=== PATIENT | female | born 1990 | race Caucasian/White ===

== ENCOUNTER → 2018-07-24 20:05 | Emergency (ER) | payer SELFPAY ==
--- NOTE | 2018-07-24 21:50 | ED ---
Substance Abuse/Use - HPI Summary HPI Summary: This patient is a 28 year old F brought in by ambulance to [facility] with a chief complaint of overdose since 19:00. The patient reports that she snorted heroin at a gas station and then cannot remember what happened after walking to a nearby car wash. Per EMS the patient was found unresponsive in a parking lot. EMS administered narcan PLAST[employer] FABRICATOR to [facility] and the patient became fully responsive. The patient rates the pain 0/10 in severity. Symptoms aggravated by nothing. Symptoms alleviated by nothing. Patient reports abrasion to her chin. The patient takes Sertraline. - History Of Current Complaint Chief Complaint: EDOverdose Stated Complaint: OVERDOSE PER EMS Time Seen by Provider: 07/24/18 20:44 Hx Obtained From: Patient Hx Last Menstrual Period: 06/25/14 Onset/Duration of Drug/ETOH Abuse: Minutes Ingestion History: Type/Name Of Drug - herion Overdose Characteristics: Oral Severity Initially: Severe Severity Currently: Mild Aggravating Factor(s): Nothing Alleviating Factor(s): Nothing Associated Signs And Symptoms: Other: - abrasion on chin - Allergies/Home Medications Allergies/Adverse Reactions: Allergies Allergy/AdvReac Type Severity Reaction Status Date / Time cefaclor [From [facility]] Allergy Airway Verified 07/24/18 20:06 Obstruction PMH/Surg Hx/FS Hx/Imm Hx Endocrine/Hematology History: Denies: Hx Diabetes, Hx Thyroid Disease Cardiovascular History: Denies: Hx Hypertension Respiratory History: Reports: Hx Asthma Denies: Hx Chronic Obstructive Pulmonary Disease (COPD) GI History: Denies: Hx Ulcer Opthamlomology History: Denies: Hx Legally Blind EENT History: Denies: Hx Deafness - Surgical History Surgery Procedure, Year, and Place: none Infectious Disease History: No Infectious Disease History: Denies: Hx Clostridium Difficile, Hx Hepatitis, Hx Human Immunodeficiency Virus (HIV), History Other Infectious Disease, Traveled Outside the [place] in Last 30 Days - Family History Known Family History: Negative: Seizure Disorder, Blood Disorder - Social History Alcohol Use: Rare Substance Use Type: Reports: Heroin Substance Use Comment - Amount & Last Used: opiates Smoking Status (MU): Never Smoked Tobacco Review of Systems Negative: Fever Negative: Epistaxis Negative: Cough Negative: Vomiting Skin: Other - abrasion on chin All Other Systems Reviewed And Are Negative: Yes Physical Exam - Summary Physical Exam Summary: VITAL SIGNS: Reviewed. GENERAL: Patient is a well-developed and nourished FEMALE who is lying comfortable in the stretcher. Patient is not in any acute respiratory distress. HEAD AND FACE: No signs of trauma. No ecchymosis, hematomas or skull depressions. No sinus tenderness. EYES: PERRLA, EOMI x 2, No injected conjunctiva, no nystagmus. EARS: Hearing grossly intact. Ear canals and tympanic membranes are within normal limits. MOUTH: Oropharynx within normal limits. NECK: Supple, trachea is midline, no adenopathy, no JVD, no carotid bruit, no c- spine tenderness, neck with full ROM. CHEST: Symmetric, no tenderness at palpation LUNGS: Clear to auscultation bilaterally. No wheezing or crackles. CVS: Regular rate and rhythm, S1 and S2 present, no murmurs or gallops appreciated. ABDOMEN: Soft, non-tender. No signs of distention. No rebound no guarding, and no masses palpated. Bowel sounds are normal. EXTREMITIES: FROM in all major joints, no edema, no cyanosis or clubbing. NEURO: Alert and oriented x 3. No acute neurological deficits. Speech is normal and follows commands. SKIN: Dry and warm. Superficial road rash on chin Triage Information Reviewed: Yes Vital Signs On Initial Exam: Initial Vitals Temp Pulse Resp BP Pulse Ox 98 F 94 16 126/80 99 07/24/18 20:07 07/24/18 20:07 07/24/18 20:07 07/24/18 20:07 07/24/18 20:07 Vital Signs Reviewed: Yes Diagnostics - Vital Signs Vital Signs Temp Pulse Resp BP Pulse Ox 07/24/18 20:27 86 18 125/73 100 07/24/18 20:26 85 15 99 07/24/18 20:07 98 F 94 16 126/80 99 - Laboratory Lab Statement: Any lab studies that have been ordered have been reviewed, and results considered in the medical decision making process. Course/Dx - Course Course Of Treatment: This patient is a 28 year old F brought in by ambulance to [facility] with a chief complaint of overdose since 19:00. The patient reports that she snorted heroin at a gas. Per EMS the patient was found unresponsive in a parking lot. EMS administered narcan PLAST[employer] FABRICATOR to [facility] and the patient became fully responsive. The patient rates the pain 0/10 in severity. Patient reports abrasion to her chin. Patient remained stable in the ED following EMS administration of narcan PLAST[employer] FABRICATOR. Dx substance abuse. Patient will be discharged home with and follow up from PCP. The patient is agreeable with this plan. - Diagnoses Provider Diagnoses: Substance abuse Discharge - Sign-Out/Discharge Documenting (check all that apply): Patient Departure - discharge home Patient Received Moderate/Deep Sedation with Procedure: No - Discharge Plan Condition: Stable Disposition: HOME Patient Education Materials: Opioid Withdrawal (ED), Opioid Use Disorder (ED) Referrals: Cristopher Zavaal MD [Primary Care Provider] - 1 Day Additional Instructions: Follow up with primary care physician in 1-2 days. Return to the emergency department with any new or worsening symptoms. - Attestation Statements Document Initiated by Scribe: Yes Documenting Scribe: Saskia Bagley Provider For Whom Scribe is Documenting (Include Credential): Madeline Juan MD Scribe Attestation: Saskia Rick, scribed for Madeline Juan MD on 07/24/18 at 2206. Status of Scribe Document: Ready
[2018-07-24 22:21] VITALS: BP 134/76
== END | disposition home or self-care (01) ==
LOC: ED 20:05
DX: F11.10 Opioid abuse, uncomplicated (principal); S00.81XA Abrasion of other part of head, initial encounter; X58.XXXA Exposure to other specified factors, initial encounter; Y92.9 Unspecified place or not applicable; J45.909 Unspecified asthma, uncomplicated
CPT/HCPCS: 99283

== ENCOUNTER 2020-12-14 14:10 | Inpatient (IN) ==
[2020-12-14] MEDS ORDERED: Albuterol HFA INHALER 8 gm MDI INH PRN (14:45)
[2020-12-14 14:54] LABS: Urine Appearance Clear; Urine Bilirubin Negative (Negative); Urine Blood 2+ (Negative); Urine Color Yellow; Urine Glucose Negative (Negative); Urine Ketones Negative (Negative); Urine Nitrite Negative (Negative); Urine Protein Negative (Negative); Urine Specific Gravity 1.005 (1.002-1.030); Urine Urobilinogen Negative (Negative)
[2020-12-14 15:01] LABS: Urine Bacteria 2+ (Absent); Urine Red Blood Cell Trace(0-2/hpf) (Absent); Urine Squamous Epithelial Cell Present (Absent); Urine White Blood Cell Trace(0-5/hpf) (Absent)
[2020-12-14 15:15] LABS: Hematocrit 35 % (35-47); Hemoglobin 11.7 g/dL (12.0-16.0); Mean Corpuscular HGB Conc 33 g/dL (31-36); Mean Corpuscular Hemoglobin 29 pg (27-31); Mean Corpuscular Volume 89 fL (80-97); Mean Platelet Volume 8.8 fL (7.4-10.4); Platelet Count 312 10^3/uL (150-450); Red Blood Count 3.98 10^6 /uL (3.70-4.87); Red Cell Distribution Width 14 % (10-15); White Blood Count 15.8 10^3/uL (3.5-10.8)
[2020-12-14 15:16] LABS: Urine Benzodiazepine Screen Presumptive Positive (None Detect); Urine Cannabinoids Screen Presumptive Positive (None Detect); Urine Opiates Screen None Detected (None Detect)
[2020-12-14 15:19] LABS: ABS Basophils 0.1 10^3/ul (0-0.2); ABS Eosinophils 0.1 10^3/ul (0-0.6); ABS Lymphocytes 1.6 10^3/ul (1.0-4.8); Eosinophil % 0.5 %; Lymphocyte % 10.3 %
[2020-12-14] MEDS ORDERED: Lactated Ringers 1000 ml BAG 1,000 ML IV ONE ×2 (15:49→19:11)
[2020-12-14] MEDS ORDERED: Penicillin G Potassium IV 5,000,000 UNITS in NS 0.9% 100 ml BAG 100 ML IVPB ONE (15:49)
[2020-12-14] MEDS: Calcium Carb (TUMS) 500 mg CHEW TAB PO PRN ×2 (16:17→21:24)
[2020-12-14] MEDS ORDERED: Betamethasone 6 mg/ml 5 ml VIAL IM SCH ×2 (17:00)
[2020-12-14 17:29] LABS: HIV 4th Generation Nonreactive (Nonreactive)
[2020-12-14] MEDS ORDERED: OBEPIDURAL 250 ML EPIDURAL ONE (18:26)
[2020-12-14] MEDS ORDERED: Phenylephrine 40 mcg/mL 10mL (400mcg) SYRINGE IV PUSH PRN ×2 (19:11)
[2020-12-14] MEDS ORDERED: Lactated Ringers 1000 ml BAG 500 ML IV PRN ×2 (19:11)
[2020-12-14] MEDS ORDERED: Sodium Citrate/Citric Acid LIQ 15 ML UDC PO PRN (19:11)
[2020-12-14 19:50] LABS: Urine Appearance Clear; Urine Bilirubin Negative (Negative); Urine Blood Negative (Negative); Urine Color Yellow; Urine Glucose Negative (Negative); Urine Ketones Trace (Negative); Urine Nitrite Negative (Negative); Urine Protein Negative (Negative); Urine Specific Gravity 1.011 (1.002-1.030); Urine Urobilinogen Negative (Negative)
[2020-12-14] MEDS ORDERED: Lactated Ringers 1000 ml BAG 1,000 ML IV SCH ×2 (20:00)
[2020-12-14] MEDS ORDERED: OBEPIDURAL 250 ML EPIDURAL SCH (20:00)
[2020-12-14 20:24] LABS: Albumin 2.9 g/dL (3.2-5.2); Calcium 9.1 mg/dL (8.6-10.3); EGFR African American 121.3 (>60); EGFR Non-African American 100.3 (>60); Globulin 2.9 g/dL (2-4); Potassium 3.7 mmol/L (3.5-5.0); Total Bilirubin 0.5 mg/dL (0.2-1.0); Total Protein 5.8 g/dL (6.4-8.9); Uric Acid 2.8 mg/dL (2.3-6.6)
[2020-12-14] MEDS: Penicillin G Potassium IV 3,000,000 UNITS in NS 0.9% 100 ml BAG 100 ML IVPB SCH (20:43)
[2020-12-14] MEDS ORDERED: Oxytocin in LR 20 UNITS/1,000 ML BAG IVPB ONE (23:56)
[2020-12-15] MEDS: Penicillin G Potassium IV 3,000,000 UNITS in NS 0.9% 100 ml BAG 100 ML IVPB SCH (00:34)
[2020-12-15] MEDS ORDERED: Witch Hazel PAD JAR TOPICAL PRN (01:45)
[2020-12-15] MEDS ORDERED: Dibucaine 1% OINT 28.35 GM TUBE PR PRN (01:45)
[2020-12-15] MEDS ORDERED: Lactated Ringers 1000 ml BAG 1,000 ML IV SCH (02:00)
[2020-12-15] MEDS ORDERED: Oxytocin in LR 20 UNITS/1,000 ML BAG IVPB SCH (02:00)
[2020-12-15] MEDS: Calcium Carb (TUMS) 500 mg CHEW TAB PO PRN ×3 (03:21→16:34)
[2020-12-15] MEDS ORDERED: Clindamycin 900 MG/D5W BAG 900 MG/50 ML BAG IVPB ONE (06:03)
[2020-12-15] MEDS ORDERED: GENTAMICIN ADULT IVPB ONE (06:30)
[2020-12-15] MEDS ORDERED: NS 0.9% IVPB ONE (06:30)
[2020-12-15] MEDS ORDERED: Flu vaccine *QUAD* 2021-22* 0.5 ML SYRINGE IM ONE (09:00)
[2020-12-15 09:34] LABS: Hematocrit 26 % (35-47); Hemoglobin 8.9 g/dL (12.0-16.0); Mean Corpuscular HGB Conc 34 g/dL (31-36); Mean Corpuscular Hemoglobin 30 pg (27-31); Mean Corpuscular Volume 89 fL (80-97); Platelet Count 298 10^3/uL (150-450); Red Blood Count 2.97 10^6 /uL (3.70-4.87); Red Cell Distribution Width 14 % (10-15); White Blood Count 32.2 10^3/uL (3.5-10.8)
[2020-12-15 10:03] LABS: ABS Basophils 0.2 10^3/ul (0-0.2); ABS Lymphocytes 2.6 10^3/ul (1.0-4.8); ABS Monocytes 1.8 10^3/ul (0-0.8); ABS Neutrophils 27.5 10^3/ul (1.5-7.7); Eosinophil % 0.1 %; Lymphocyte % 8.2 %
[2020-12-15 13:43] LABS: Chlamydia trachomatis NAA Negative (Negative); Neisseria gonorrhoeae (GC) NAA Negative (Negative)
[2020-12-16 06:11] LABS: ABS Basophils 0.1 10^3/ul (0-0.2); ABS Eosinophils 0.1 10^3/ul (0-0.6); ABS Lymphocytes 1.7 10^3/ul (1.0-4.8); ABS Monocytes 0.8 10^3/ul (0-0.8); ABS Neutrophils 14.8 10^3/ul (1.5-7.7); Eosinophil % 0.4 %; Hematocrit 26 % (35-47); Hemoglobin 8.9 g/dL (12.0-16.0); Lymphocyte % 9.7 %; Mean Corpuscular HGB Conc 34 g/dL (31-36); Mean Corpuscular Hemoglobin 30 pg (27-31); Mean Corpuscular Volume 89 fL (80-97); Mean Platelet Volume 8.6 fL (7.4-10.4); Platelet Count 347 10^3/uL (150-450); Red Blood Count 2.92 10^6 /uL (3.70-4.87); Red Cell Distribution Width 14 % (10-15); White Blood Count 17.5 10^3/uL (3.5-10.8)
[2020-12-16 11:11] LABS: Hepatitis B Surface Antigen Nonreactive (Nonreactive)
[2020-12-16 11:28] LABS: Hepatitis C Antibody Negative (Negative)
[2020-12-16] MEDS: Calcium Carb (TUMS) 500 mg CHEW TAB PO PRN (18:34)
[2020-12-17] MEDS ORDERED: Flu vaccine *QUAD* 2021-22* 0.5 ML SYRINGE IM ONE (09:00)
[2020-12-18 07:48] VITALS: BP 128/68
[2020-12-20 22:42] LABS: 7-amnioflunitrazepam LC-MS/MS Negative ng/mL (Cutoff: 10); Alpha OH Triazolam by LC-MS/MS Negative ng/mL (Cutoff: 10); Alpha-Hydroxyalprazolam LC-MS Negative ng/mL (Cutoff: 10); Alpha-OH Midazolam LC-MS/MS Negative ng/mL (Cutoff: 10); Alprazolam LC-MS/MS Negative ng/mL (Cutoff: 10); Chlordiazepoxide by LC-MS/MS Negative ng/mL (Cutoff: 10); Clobazam LC-MS/MS Negative ng/mL (Cutoff: 10); Lorazepam by LC-MS/MS Negative ng/mL (Cutoff: 10); Oxazepam by LC-MS/MS Negative ng/mL (Cutoff: 10); Prazepam by LC-MS/MS Negative ng/mL (Cutoff: 10); Temazepam by LC-MS/MS Negative ng/mL (Cutoff: 10); Triazolam by LC-MS/MS Negative ng/mL (Cutoff: 10); Zolpidem Phenyl-4-Carboxylic Negative ng/mL (Cutoff: 10); Zolpidem by LC-MS/MS Negative ng/mL (Cutoff: 10)
== END 2020-12-18 18:20 | disposition home or self-care (01) | DRG 560 ==
LOC: MCHOBOUT 14:10 → MCHOB 16:10
PROVIDERS: ADMIT Midwife; ATTEND Midwife

== ENCOUNTER 2022-10-19 18:10 | Inpatient (IN) ==
[2022-10-19] MEDS ORDERED: Lactated Ringers 1000 ml BAG 1,000 ML IV ONE ×2 (18:34→19:19)
[2022-10-19] MEDS ORDERED: Buffered Lidocaine 1% SYRIN 1 ml INTRADERM ONE (18:34)
[2022-10-19 18:39] LABS: Hematocrit 39.4 % (35-45); Hemoglobin 13.2 g/dL (11.5-14.3); Mean Corpuscular Hemoglobin 28.3 pg (27-33); Mean Corpuscular Hgb Conc 33.4 g/dL (31-36); Mean Corpuscular Volume 84.6 fL (80-97); Mean Platelet Volume 9.7 fL (7.5-11.2); Platelet Count 238 10^3/uL (150-450); Red Blood Count 4.65 10^6/uL (3.63-4.92); Red Cell Distribution Width 13.8 % (12-17); White Blood Count 13.8 10^3/uL (3.8-11.8)
[2022-10-19] MEDS ORDERED: Bupivacaine 0.25% SDV PF 10 ML VIAL INJ ONE (18:47)
[2022-10-19] MEDS ORDERED: OBEPIDURAL (200 ML) 200 ML EPIDURAL ONE (18:47)
[2022-10-19] MEDS ORDERED: fentaNYL 100 mcg/2 ml 50 MCG/ML VIAL ONE (18:47)
[2022-10-19] MEDS ORDERED: Phenylephrine 40 mcg/mL 10mL (400mcg) SYRINGE ONE (18:58)
[2022-10-19] MEDS ORDERED: Lactated Ringers 1000 ml BAG 1,000 ML IV SCH ×3 (19:00→22:00)
[2022-10-19] MEDS ORDERED: Lidocaine 1% w EPI 1:200,000 SDV 10 ML VIAL ONE (19:02)
[2022-10-19 19:12] LABS: Albumin 3.6 g/dL (3.2-5.2); CO2 Carbon Dioxide 24 mmol/L (22-32); Calcium 9.6 mg/dL (8.6-10.3); Chloride 104 mmol/L (101-111); Sodium 139 mmol/L (135-145)
[2022-10-19 19:18] LABS: ALT 45 U/L (7-52); Albumin/Globulin Ratio 1.2 (1-3); Alkaline Phosphatase 389 U/L (35-149); Blood Urea Nitrogen 14 mg/dL (6-24); Creatinine, Serum 0.82 mg/dL (0.51-0.95); Globulin 2.9 g/dL (2-4); Glucose 99 mg/dL (70-100); Total Protein 6.5 g/dL (6.4-8.9); eGFR CKD-EPI 96.2 (>60)
[2022-10-19] MEDS ORDERED: Sodium Citrate/Citric Acid LIQ 15 ML UDC PO PRN (19:19)
[2022-10-19] MEDS ORDERED: Phenylephrine 40 mcg/mL 10mL (400mcg) SYRINGE IV PUSH PRN ×2 (19:19)
[2022-10-19 19:32] LABS: RBC Morphology Normal (Normal)
[2022-10-19 19:33] LABS: Platelet Morphology Large
[2022-10-19 19:34] LABS: ABS Basophils 0.1 10^3/uL (0.0-0.1); ABS Lymphocytes 2.1 10^3/uL (1.0-4.8); ABS Monocytes 0.9 10^3/uL (0.0-0.9); ABS Neutrophils 10.6 10^3/uL (1.5-7.6); ABS Nucleated RBC 0.01 10^3/ul; Eosinophil % 0.3 %; Lymphocyte % 15.1 %
[2022-10-19 19:42] LABS: Rubella Screen IgG Immune (Immune)
[2022-10-19 19:44] LABS: Anion Gap 11 mmol/L (2-16)
[2022-10-19] MEDS ORDERED: Oxytocin in LR 20,000 MILLI.UNIT/1,000 ML BAG IV ONE (19:48)
[2022-10-19] MEDS ORDERED: OBEPIDURAL (200 ML) 200 ML EPIDURAL SCH (20:00)
[2022-10-19] MEDS ORDERED: Witch Hazel PAD JAR TOPICAL PRN (21:26)
[2022-10-19] MEDS ORDERED: Glycerin ADULT 2.4 gm SUPP PR PRN (21:26)
[2022-10-19] MEDS ORDERED: Tetan/Diph/Pertus SYR(Tdap) 0.5 ML SYR(BOOSTRIX) use SYR contains LATEX IM ONE (21:26)
[2022-10-19] MEDS ORDERED: Dibucaine 1% OINT 28.35 GM TUBE PR PRN (21:26)
[2022-10-19] MEDS ORDERED: Oxytocin in LR 20,000 MILLI.UNIT/1,000 ML BAG IV SCH (21:30)
[2022-10-19 21:50] LABS: Hepatitis B Surface Antigen Nonreactive (Nonreactive)
[2022-10-19 21:59] LABS: HIV 4th Generation Nonreactive (Nonreactive)
[2022-10-19 22:08] LABS: Hepatitis C Antibody Negative (Negative)
[2022-10-19] MEDS: Calcium Carb (TUMS) 500 mg CHEW TAB PO PRN (23:49)
[2022-10-20 00:44] LABS: Urine Benzodiazepine Screen None Detected (None Detect); Urine Cannabinoids Screen Presumptive Positive (None Detect); Urine Opiates Screen None Detected (None Detect)
[2022-10-20] MEDS: Calcium Carb (TUMS) 500 mg CHEW TAB PO PRN ×2 (05:35→11:41)
[2022-10-20 08:48] LABS: Hematocrit 31.2 % (35-45); Hemoglobin 10.5 g/dL (11.5-14.3); Mean Corpuscular Hemoglobin 28.9 pg (27-33); Mean Corpuscular Hgb Conc 33.7 g/dL (31-36); Mean Corpuscular Volume 85.6 fL (80-97); Platelet Count 167 10^3/uL (150-450); Red Blood Count 3.65 10^6/uL (3.63-4.92); Red Cell Distribution Width 13.9 % (12-17); White Blood Count 16.1 10^3/uL (3.8-11.8)
[2022-10-20 10:47] LABS: ABS Basophils 0.1 10^3/uL (0.0-0.1); ABS Lymphocytes 1.6 10^3/uL (1.0-4.8); ABS Monocytes 0.9 10^3/uL (0.0-0.9); ABS Neutrophils 13.6 10^3/uL (1.5-7.6); ABS Nucleated RBC 0.01 10^3/ul; Eosinophil % 0.2 %; Lymphocyte % 9.6 %
[2022-10-20] MEDS ORDERED: Tetan/Diph/Pertus SYR(Tdap) 0.5 ML SYR(BOOSTRIX) use SYR contains LATEX IM ONE (12:00)
[2022-10-21 11:43] VITALS: BP 126/81
== END 2022-10-21 14:15 | disposition home or self-care (01) | DRG 560 ==
LOC: MCHOBOUT 18:10 → MCHOB 18:23
PROVIDERS: ADMIT Obstetrics & Gynecology; ATTEND Obstetrics & Gynecology